=== PATIENT | female | born 1985 | race Caucasian/White ===

== ENCOUNTER 2024-02-13 18:51 | Emergency (ER) | payer OTHER, SELFPAY ==
[2024-02-13 19:12] VITALS: BP 134/91; BP 162/97; PULSE 78; PULSE 84; RESP 16; O2SAT 100; BMI 20.8
--- NOTE | 2024-02-13 19:14 | PC.NURSE ---
Leon patient's [facility] phone number for ride [phone] can call for a ride home when necessary states he gave Narcan x 1 at home before he called EMS.
--- NOTE | 2024-02-13 19:26 | ED_ITS ---
HPI - General Adult General Chief complaint: ETOH/Substance Use Stated complaint: ams, pt admits to smoking crack & marijuana. Time Seen by Provider: 02/13/24 19:23 Source: patient and EMS Mode of arrival: EMS Limitations: no limitations History of Present Illness HPI narrative: patient comes to the emergency room by EMS. According to EMS, the patient's boyfriend called because the patient used crack/ cocaine and marijuana and has been dosing of. Patient states that she has been awake the whole time, she did not want to come here, states that her boyfriend over reacted and does not want any medical care. According to EMS, patient did not receive any Narcan, but the patient's boyfriend told the patient's nurse over the phone that he did give her intranasal Narcan. Patient denies SI or HI. Related Data Allergies Allergy/AdvReac Type Severity Reaction Status Date / Time Unable to Assess Allergy Verified 02/13/24 19:15 Review of Systems Review of Systems: Constitutional : No Weight loss, No Fever, No Chills, No Night Sweats, No Fatigue, No Malaise ENT/Mouth : No Hearing loss, No Ear Pain, No Nasal Congestion, No Sinus Pain, No Hoarseness, No sore throat, No Rhinorrhea, No Swallowing Difficulty Eyes: No Eye Pain, No Swelling, No Redness, No Foreign Body, No Discharge, No Vision Changes Cardiovascular : No Chest Pain, No SOB, No Dyspnea on Exertion, No Orthopnea, No Edema, No Palpitations Respiratory : No Cough, No Sputum, No Wheezing, No Smoke Exposure, No Dyspnea Gastrointestinal : No Nausea, No Vomiting, No Diarrhea, No Constipation, No abdominal Pain, No Hematochezia, No Melena Genitourinary : no irregular bleeding, No Dysuria, No Urinary Frequency, No Hematuria, No Urinary Incontinence, No Urgency, No Flank Pain, No Urinary Flow Changes, No Hesitancy Musculoskeletal : No joint pain, No Myalgias, No Joint Swelling Skin : No Skin Lesions, No rash Neuro : No Weakness, No Numbness, No Paresthesias, No Loss of Consciousness, No Dizziness, No Headache Psych : No Anxiety/Panic, No Depression, No SI/HI/AH/VH, Admits to polysub stance abuse Heme/Lymph: No Bruising, No Bleeding,No Lymphadenopathy Endocrine : No Polyuria, No Polydipsia, No Temperature Intolerance PMFSH Past Medical History Medical History (Updated 02/13/24 @ 19:30 by Nicole Rausch MD) Polysubstance abuse Physical Exam ED Vital Signs: Vital Signs - 24 hr 02/13/24 19:12 Pulse Rate 78 Respiratory Rate 16 Blood Pressure 134/91 H Pulse Oximetry 100 Oxygen Delivery Method Room Air BMI result Body Mass Index 20.8 Const Other: Appearance: Alert. Oriented X3. No acute distress. patient's seems under the influence of drugs. However, patient is awake, and coherent Eyes: Pupils equal, round and reactive to light. ENT: Pharynx normal. Neck: Normal inspection. Neck supple. No lymph nodes noted. No crepitus CVS: Normal heart rate and rhythm. Pulses normal. Normal S1 and S2 Respiratory: No respiratory distress. Breath sounds normal. No Wheezing. No rales Abdomen: Soft and nontender. No rigidity. No distention. Skin: Skin warm and dry. Normal skin color. Normal skin turgor. Extremities: No lower extremity edema. No Lacerations. No Rash Neuro: Oriented X 3. No motor deficit. No sensory deficit. Moving all extremities. No slurred speech. CN 2 through 12 grossly intact Psych: calm, cooperative, normal affect Medical Decision Making Medical Decision Making MDM Narrative: - patient's vitals stable, oxygen 100% on room air, patient has not had any episodes of oxygen desaturation. - patient declined any medical assistance - Patient declined sude eval - patient's friend Leon is willing to, pick her up Discharge Plan Discharge Clinical Impression: Polysubstance abuse Patient Disposition: Home, Self-Care Instructions: Polysubstance Abuse (ED) Additional Instructions: Please follow-up with your primary care physician tomorrow. If you have any worsening or new symptoms, please return to the emergency room or call 911
[2024-02-13 19:58] VITALS: BP 146/95; PULSE 75; RESP 16; TEMP 36.1; O2SAT 95
[2024-02-13 20:05] VITALS: BP 146/95; PULSE 75; RESP 16; TEMP 36.1; O2SAT 95
== END 2024-02-13 20:07 | disposition home or self-care (01) ==
PROVIDERS: Emergency Provider Emergency Medicine
DX: F19.10 Other psychoactive substance abuse, uncomplicated (principal)
CPT/HCPCS: 99282; 99284